=== PATIENT | male | born 1950 | race Caucasian/White ===

== ENCOUNTER → 2017-06-10 | Outpatient (CLI) | payer OTHER | END | disposition home or self-care (01) | LOC: OIH 11:25 | PROVIDERS: ATTEND Internal Medicine | DX: M19.041 Primary osteoarthritis, right hand (principal); M19.071 Primary osteoarthritis, right ankle and foot; M19.072 Primary osteoarthritis, left ankle and foot; M77.32 Calcaneal spur, left foot; M17.0 Bilateral primary osteoarthritis of knee | CPT/HCPCS: 73130; 73562; 73630 ==

== ENCOUNTER → 2017-07-21 | Outpatient (CLI) | payer OTHER | END | disposition home or self-care (01) | LOC: OIH 09:13 | PROVIDERS: ATTEND Internal Medicine | DX: M25.572 Pain in left ankle and joints of left foot (principal); M77.32 Calcaneal spur, left foot; Z91.81 History of falling; M79.89 Other specified soft tissue disorders | CPT/HCPCS: 73610 ==

== ENCOUNTER → 2017-07-24 | Outpatient (CLI) | payer OTHER | END | disposition home or self-care (01) | LOC: RAH 10:18 | PROVIDERS: ATTEND Internal Medicine | DX: M00.872 Arthritis due to other bacteria, left ankle and foot (principal); M19.072 Primary osteoarthritis, left ankle and foot; M79.89 Other specified soft tissue disorders; R68.89 Other general symptoms and signs | CPT/HCPCS: 73721 ==

== ENCOUNTER → 2022-02-06 | Outpatient (CLI) | payer MEDICARE ==
[~2022-02-06] MED LIST: GADOTERATE MEGLUMINE 10 MMOL/20 ML VIAL IV ONE
== END | disposition home or self-care (01) ==
LOC: RAH 08:59
PROVIDERS: ATTEND Internal Medicine
DX: M47.812 Spondylosis without myelopathy or radiculopathy, cervical region (principal); M48.02 Spinal stenosis, cervical region; G95.9 Disease of spinal cord, unspecified; M50.31 Other cervical disc degeneration, high cervical region; Z98.1 Arthrodesis status
CPT/HCPCS: 72156; A9575

== ENCOUNTER → 2024-04-26 | Outpatient (CLI) | payer MEDICARE ==
--- NOTE | 2024-04-26 16:47 | HMCIMG ---
PA AND LATERAL CHEST RADIOGRAPH INDICATION: ESSENTIAL HYPERTENSION, BENIGN COMPARISON: 11/18/2016 FINDINGS: Heart size is normal. The pulmonary vascularity and jc appear normal. No abnormal pulmonary parenchymal opacity or consolidation identified. No significant pleural effusion noted. No pneumothorax detected. Chronic moderate compression deformity involving a few lower thoracic vertebral bodies. IMPRESSION: No radiographic evidence for any acute cardiopulmonary process.
== END | disposition home or self-care (01) ==
LOC: RAH 15:59
PROVIDERS: ATTEND Internal Medicine
DX: I10 Essential (primary) hypertension (principal); M43.8X4 Other specified deforming dorsopathies, thoracic region
CPT/HCPCS: 71046

== ENCOUNTER 2024-05-26 09:32 | Day surgery (SDC) | payer MEDICARE ==
[2024-05-23 14:45] VITALS: BP 155/89; PULSE 54; RESP 18; TEMP 97.7
--- NOTE | 2024-05-24 08:06 | EKG ---
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
--- NOTE | 2024-05-25 12:08 | NUR ---
RE: EKG REPORTED EKG RESULTS TO DR DUMONT, NO NEW ORDERS RECEIVED.
[~2024-05-26] VITALS: Ht 185.4 cm; Wt 101.4 kg
[2024-05-26] VITALS (13 sets, daily range): BP systolic 95–124; BP diastolic 55–78; PULSE 60–82; RESP 15–22; TEMP 96.5–97.8
[~2024-05-26 09:32] MED LIST changes: +AMLO-257 PO; +ATOR40TA69 PO; -GADOTERATE MEGLUMINE 10 MMOL/20 ML VIAL IV ONE; +PANT40TA55 PO; +TELM1TAB84 PO; +TRAZ-187 PO
[2024-05-26] MEDS: LACTATED RINGERS 1000ML 1,000 ML IV ONE (09:40)
[2024-05-26] MEDS: ceFAZolin SODIUM 2 GM VIAL ONE (09:40)
[2024-05-26] MEDS ORDERED: LACTATED RINGERS 1000ML IV ONE (10:00)
[2024-05-26] MEDS ORDERED: LIDOCAINE PF 100MG/5ML (2%) SYRINGE 5ML ONE (12:03)
[2024-05-26] MEDS ORDERED: dexaMETHasone SOD PHOSPHATE 10MG/ML 1ML VIAL ONE (12:03)
[2024-05-26] MEDS ORDERED: ondanSETRON 4MG INJ ONE (12:03)
[2024-05-26] MEDS ORDERED: proPOFol 10 MG/ML 20ML VIAL IV ONE (12:04)
[2024-05-26] MEDS ORDERED: rocuRONium bROMide 10MG/1ML 5ML VL ONE ×2 (12:04→13:49)
[2024-05-26] MEDS ORDERED: FENTanyl CITRate PF 50 MCG/1 ML 2ML VIAL ONE (12:04)
[2024-05-26] MEDS ORDERED: MIDAZOLAM HCL 1 MG/ML 2ML VIAL ONE (12:04)
[2024-05-26] MEDS ORDERED: phenylEPHRINE HCL 10 MG/ML 1ML VIAL IV ONE (12:05)
[2024-05-26] MEDS ORDERED: NEOSTIGMINE METHYLSULFATE 1MG/ML IV ONE (12:23)
[2024-05-26] MEDS ORDERED: GLYCOPYRROLATE 0.2 MG/ML 5 ML VIAL ONE (12:23)
[2024-05-26] MEDS ORDERED: BUPIvacaine/PF 0.25% 30ML VIAL IJ ONE (15:54)
[2024-05-26] MEDS ORDERED: VANCOMYCIN 1G/250ML KIT 250 ML IV ONE (16:00)
--- NOTE | 2024-05-26 16:51 | OP ---
Operative Note: DATE OF PROCEDURE: 05/26/24 SURGEON: JULIANA ETIENNE DPM MRI TECHNICIAN: None ANESTHESIA: General PREOPERATIVE DIAGNOSIS: 1. Posttraumatic arthritis left ankle 2. Adductovarus deformity left ankle POSTOPERATIVE DIAGNOSIS: Same Findings: Significant arthritic changes was found in ankle joint PROCEDURE: 1. Total ankle replacement arthroplasty left ankle 2. Prophylactic fixation of medial malleolus left ankle ESTIMATED BLOOD LOSS: Minimal INDICATIONS: Patient has been suffering from the severe arthritic changes in ankle joint and subtalar joint. Diagnostic block show that the 100% relief was gained from ankle injection therefore patient wants to proceed with ankle procedure without addressing the subtalar joint at this point. Due to the varus deformity tibial cut will be close to the medial malleolus after deformity was corrected, therefore, prophylactic fixation of the medial malleolus was performed. Injectables: 10 cc of 0.25% Marcaine plain locally and popliteal block per anesthesia Specimen: None Materials: Star total ankle replacement system with large size tibial tray and small size talar component with a 6 mm poly. 4.0 mm cannulated cancellous screws x2, 2-0 Vicryl, 3-0 Vicryl, 3-0 nylon. Hemostasis: Pneumonic thigh tourniquet at 300 mm Hg DESCRIPTION OF PROCEDURE: The patient was brought into the operating room and placed on table in a supine position and general anesthesia was induced. The time-out was called with the all the staff in the room to identify the patient, procedure and procedure site. Patient's left lower extremity was prepped and draped in usual aseptic manner, exsanguinated utilizing Esmarch bandage and pneumonic thigh tourniquet was inflated at 300 mm Hg. Curvilinear incision was made over the anterior aspect of the ankle joint. Incision was deepened through the subcutaneous tissue layer care being taken to retract and protect all the vital neurovascular structures. Small bleeders were coagulated. Extensor retinacular incision was made longitudinally. Deeper incision was carried out between the tibialis anterior tendon and extensor voss ucis longus tendon. Capsular incision was made over the ankle joint and capsular layer was reflected medially and laterally. There was significant amount of osteophytes and loose pieces found on the anterior aspect of the ankle joint. There were removed and passed from the operative site. Procedure 1. Total ankle replacement left ankle Alignment jig was placed on the lower leg and the alignment was confirmed under the fluoroscopy in multiple views and the talar cut guide was placed. It was placed to correct the varus deformity at the same time. Using the cut guide tibial plafond was resected and passed from the operative site. Off the jig talar cut guide was placed. Dorsal cut posterior chamfer anterior chamfer and medial and lateral chamfer cuts were made. Trials were then placed into the ankle joint and stem hole was created along with the barrel holes in the tibial plafond. The size of the implants were also measured. The surgical wound was irrigated aggressively utilizing copious amounts of n ormal sterile saline with a pressure. Utilizing new instruments and gloves implant of above sizes were placed into the ankle joint. Placement of the implants and alignment of the ankle joints were confirmed under fluoroscopy in multiple views. Range of motion was also evaluated. There is a proximally 25 of dorsiflexion and 45 of plantar flexion. Procedure 2. Prophylactic fixation of the medial malleolus left ankle Surgical wounds was once again irrigated. 2 x 4.0 mm cancellous screws were inserted from the tip of the medial malleolus into the tibial shaft. Placement of the fixation devices were confirmed under fluoroscopy in multiple views. The capsular layer was reapproximated utilizing 2-0 Vicryl. Extensor retinaculum was reapproximated utilizing 3-0 Vicryl and subcutaneous tissue layer was reapproximated utilizing 3-0 Vicryl and skin via 3-0 nylon. Pneumonic thigh tourniquet was released. Surgical wounds were dressed with dry sterile dressing followed by Paiz compression dressing. The patient tolerated the procedure. Anesthesia performed a popliteal block. In addition to the popliteal block local injection of above injectable was performed along the incisions. JULIANA ETIENNE DPM May 26, 2024 16:51
--- NOTE | 2024-05-26 16:52 | HMCIMG ---
ANKLE COMP 3VWS LT HISTORY: Left subtalar joint fusion COMPARISON: None TECHNIQUE: Fluoroscopic images of left ankle were obtained. FINDINGS: Please see procedure report for referring physician. IMPRESSION: 1. Findings as described above.
--- NOTE | 2024-05-26 18:05 | NUR ---
good capillary refil to left toes, warm to touch , pt able to move toes around Addendum: 05/26/24 at 1806 by DANIEL HUNTER RN RN Amended: Links added.
== END 2024-05-26 18:16 | disposition home or self-care (01) ==
LOC: DAH 09:32
PROVIDERS: ATTEND Podiatrist
DX: M19.172 Post-traumatic osteoarthritis, left ankle and foot (principal); M21.172 Varus deformity, not elsewhere classified, left ankle; M25.772 Osteophyte, left ankle; I10 Essential (primary) hypertension; N40.0 Benign prostatic hyperplasia without lower urinary tract symptoms; E78.5 Hyperlipidemia, unspecified; G47.00 Insomnia, unspecified; K21.9 Gastro-esophageal reflux disease without esophagitis; F41.9 Anxiety disorder, unspecified; Z82.49 Family history of ischemic heart disease and other diseases of the circulatory system; Z79.899 Other long term (current) drug therapy; Z98.890 Other specified postprocedural states
CPT/HCPCS: 93005; 27745; 27702; 64450; 64447; 76942; 73610; A4223 ×2; A6260; C1713 ×4; A4663; A4649 ×3; J7120; J3010; J1100; J0665; J3490 ×3; J2003; J2250; J2704; J2405; J2710; J3370; J2371; J0690; A4930; A4215; A4222; A4221; A4216; A6450

== ENCOUNTER → 2024-06-28 | Outpatient (CLI) | payer MEDICARE ==
--- NOTE | 2024-06-28 12:37 | HMCIMG ---
Exam Type: US VENOUS DOPPLER UNILATERAL Clinical Information: acute dvt of calf muscle vein of left lower extremity Comparison: None Findings: The examination shows normal deep venous system. There is normal compressibility at all levels. There is no intraluminal clot. There is no occlusion. Adequate response is obtained on augmentation. Impression: No evidence of DVT.
== END | disposition home or self-care (01) ==
LOC: RAH 11:06
PROVIDERS: ATTEND Podiatrist
DX: I82.462 Acute embolism and thrombosis of left calf muscular vein (principal)
CPT/HCPCS: 93971